=== PATIENT | female | born 1970 | race Caucasian/White ===

== ENCOUNTER → 2022-08-04 08:41 | Outpatient (BNVA) | payer OTHER, SELFPAY | PROVIDERS: Visit Provider Physician Assistant | DX: M54.40 Lumbago with sciatica, unspecified side (principal) | CPT/HCPCS: 99204 ==

== ENCOUNTER → 2022-08-09 09:52 | Outpatient (BNVA) | payer OTHER, SELFPAY | PROVIDERS: Visit Provider Physician Assistant | DX: M54.41 Lumbago with sciatica, right side (principal) | CPT/HCPCS: 72110; 99215 ==

== ENCOUNTER → 2022-08-21 09:14 | Outpatient (BNVA) | payer OTHER, SELFPAY | PROVIDERS: Visit Provider Physician Assistant Medical | DX: M54.40 Lumbago with sciatica, unspecified side (principal) | CPT/HCPCS: 99213 ==

== ENCOUNTER → 2022-08-30 09:42 | Outpatient (BNVA) | payer OTHER, SELFPAY | PROVIDERS: Visit Provider Physician Assistant | DX: M54.50 Low back pain, unspecified (principal) | CPT/HCPCS: 99214 ==

== ENCOUNTER 2022-09-19 10:02 | Outpatient (REF) | payer OTHER, SELFPAY ==
--- NOTE | ~2022-09-19 | MR_ITS ---
EXAMINATION: MR LUMBAR SPINE WITHOUT CONTRAST CLINICAL INFORMATION: Lumbar pain. COMPARISON: Lumbar spine radiographs from 08/09/2022. TECHNIQUE: MRI of the lumbar spine was obtained using routine sequences without contrast. FINDINGS: Normal anatomic alignment. Mild degenerative disc disease from L2-S1 with partial disc desiccation. T2 hyperintense annular fissures are noted at L2-L3, L4-L5, and L5-S1. Associated minimal mixed Modic type discogenic endplate changes. No suspicious marrow edema. The vertebral body heights are well-maintained. The conus medullaris terminates at the level of L1. The distal spinal cord is normal in appearance. No significant abnormalities of the paraspinal musculature. Limited evaluation of the intra-abdominal structures without significant abnormalities. The abdominal aorta is of normal contour and caliber. AXIAL SPINAL LEVELS: T12-L1: Normal annular contour. There is mild left and no right facet joint arthropathy. There is no neural foraminal stenosis. There is no spinal canal stenosis. L1-L2: Normal annular contour. There is no facet joint arthropathy. There is no neural foraminal stenosis. There is no spinal canal stenosis. L2-L3: Shallow posterior disc protrusion. There is mild bilateral facet joint arthropathy. There is no neural foraminal stenosis. There is no spinal canal stenosis. L3-L4: Mild diffuse disc bulge. There is moderate left and mild right facet joint arthropathy. There is no neural foraminal stenosis. There is no spinal canal stenosis. L4-L5: Mild diffuse disc bulge with superimposed shallow central disc protrusion. There is moderate left and mild right facet joint arthropathy. There is no neural foraminal stenosis. There is narrowing of the subarticular zones with no overt spinal canal stenosis centrally. L5-S1: Mild diffuse disc bulge with superimposed shallow central disc protrusion. There is mild bilateral facet joint arthropathy. There is no neural foraminal stenosis. There is mild narrowing of the subarticular zones with no overt spinal canal stenosis centrally. 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 Most notably, there are narrowings of the subarticular zones at L4-L5 and L5-S1. No additional overt spinal canal stenosis or nerve root compression. There are small annular fissures at L2-L3, L4-L5, and L5-S1.
== END 2022-09-19 10:03 | disposition home or self-care (01) ==
LOC: HO.MRI 10:02
PROVIDERS: Visit Provider Physician Assistant Medical
DX: M54.16 Radiculopathy, lumbar region (principal); M54.31 Sciatica, right side; M54.50 Low back pain, unspecified
CPT/HCPCS: 72148

== ENCOUNTER → 2022-09-20 09:39 | Outpatient (BNVA) | payer OTHER, SELFPAY | PROVIDERS: Visit Provider Physician Assistant | DX: M54.41 Lumbago with sciatica, right side (principal) | CPT/HCPCS: 99214 ==

== ENCOUNTER → 2022-10-04 11:22 | Outpatient (BNVA) | payer OTHER, SELFPAY | PROVIDERS: Visit Provider Physician Assistant | DX: M54.41 Lumbago with sciatica, right side (principal) | CPT/HCPCS: 99213 ==

== ENCOUNTER → 2022-10-24 08:59 | Outpatient (BNVA) | payer OTHER, SELFPAY | PROVIDERS: Visit Provider Physician Assistant Medical | DX: M54.16 Radiculopathy, lumbar region (principal); M46.1 Sacroiliitis, not elsewhere classified | CPT/HCPCS: 99213 ==

== ENCOUNTER → 2022-11-14 11:10 | Outpatient (BNVA) | payer OTHER, SELFPAY | PROVIDERS: Visit Provider Physician Assistant Medical | DX: M54.16 Radiculopathy, lumbar region (principal); M46.1 Sacroiliitis, not elsewhere classified | CPT/HCPCS: 99213 ==

== ENCOUNTER → 2022-11-28 13:30 | Outpatient (BNVA) | payer OTHER, SELFPAY | PROVIDERS: Visit Provider Physician Assistant Medical | DX: M54.50 Low back pain, unspecified (principal); M54.17 Radiculopathy, lumbosacral region; M46.1 Sacroiliitis, not elsewhere classified | CPT/HCPCS: 99213 ==

== ENCOUNTER → 2023-01-08 09:10 | Outpatient (BNVA) | payer OTHER, SELFPAY | PROVIDERS: Visit Provider Physician Assistant Medical | DX: M54.40 Lumbago with sciatica, unspecified side (principal) | CPT/HCPCS: 99213 ==

== ENCOUNTER → 2023-02-08 15:57 | Outpatient (BNVA) | payer OTHER, SELFPAY | PROVIDERS: Visit Provider Physician Assistant | DX: M51.16 Intervertebral disc disorders with radiculopathy, lumbar region (principal); M46.1 Sacroiliitis, not elsewhere classified | CPT/HCPCS: 99213 ==

== ENCOUNTER → 2023-04-13 15:22 | Outpatient (BNVA) | payer OTHER, SELFPAY | PROVIDERS: Visit Provider Physician Assistant | DX: M51.17 Intervertebral disc disorders with radiculopathy, lumbosacral region (principal); M46.1 Sacroiliitis, not elsewhere classified | CPT/HCPCS: 99213 ==